=== PATIENT | male | born 1935 | race Caucasian/White ===

== ENCOUNTER → 2017-06-10 | Outpatient (CLI) | payer OTHER | LOC: CIMAGING 08:03 | PROVIDERS: ATTEND Family Medicine | DX: M54.5 Low back pain (principal); M51.36 Other intervertebral disc degeneration, lumbar region; K59.00 Constipation, unspecified | CPT/HCPCS: 72100-PO ==

== ENCOUNTER 2018-02-01 12:17 | Inpatient (IN) | payer OTHER ==
--- NOTE | 2018-02-01 12:39 | EDPHY ---
H & P Time Seen by Provider: 02/01/18 12:38 HPI/ROS: Chief complaint. Fall, hip pain HPI. Patient is an 82-year-old male trip and fall at home. Injured his left hip. Unable to stand or walk since the injury. Did not strike his head or lose consciousness. No neck pain. He is not on blood thinners. No other injuries. No previous injury to the left hip. Increased pain with range of motion of the left hip. Denies chest pain or shortness of breath. No abdominal pain. ROS 10 systems were reviewed and negative with the exception of the elements mentioned in the history of present illness Past Medical/Surgical History: BPH Social History: , nonsmoker, no alcohol Physical Exam: General Appearance: Alert well-developed male moderate distress vital signs are stable Eyes: Pupils equal and round no pallor or injection. ENT, Mouth: Mucous membranes are moist. No evidence of head trauma Respiratory: There are no retractions, lungs are clear to auscultation. Cardiovascular: Regular rate and rhythm. Gastrointestinal: Abdomen is soft and nontender, no masses, bowel sounds normal. Neurological: Awake and alert, sensory and motor exams grossly normal. Skin: Warm and dry, no rashes. Musculoskeletal: Neck is supple nontender. Extremities pain to palpation left hip. Increased pain with range of motion. Slight shortening of the left leg. Distal motor vascular sensitivity is intact Psychiatric: Patient is oriented X 3, there is no agitation. Constitutional: Initial Vital Signs Temperature (C) 37.3 C 02/01/18 12:20 Heart Rate 86 02/01/18 12:20 Respiratory Rate 18 02/01/18 12:20 Blood Pressure 144/95 H 02/01/18 12:20 O2 Sat (%) 96 02/01/18 12:20 O2 Delivery Mode Room Air Allergies/Adverse Reactions: cephalexin [From Keflex] Allergy (Verified 02/01/18 13:53) Rash Home Medications: Medication Instructions Recorded Tamsulosin HCl [Flomax 0.4 MG (RX)] 0.4 mg PO HS 08/17/12 Medical Decision Making - Diagnostics EKG Interpretation: EKG interpreted by me shows normal sinus rhythm normal interval. Left axis deviation with left anterior fascicular block. Slight ST elevation in lead V2. No arrhythmia. The rate is 78 Imaging Results: Imaging Impressions Hip X-Ray 02/01/18 12:27 Impression: Possible left subcapital nondisplaced hip fracture. Results discussed with Dr. Juan Lopez at 1:24 PM. Chest X-Ray 02/01/18 12:50 Impression: Nothing acute identified, assuming that the left posterior ribs described above are not symptomatic. X-ray left hip shows possible left subcapital nondisplaced hip fracture. One-view chest x-ray interpreted by me is normal Procedures: IV normal saline. Patient declines pain medication ED Course/Re-evaluation: The patient, his , and I discussed imaging studies. We discussed treatment plan including emanation for admission and orthopedic evaluation. She expresses understanding and agreement I consulted and discussed the case with who will see the patient and agrees with treatment plan I consulted and discussed case with Dr. Ellsworth, hospitalist who sees the patient in the emergency department Differential Diagnosis: I considered fracture, dislocation, contusion - Data Points Laboratory Results: Laboratory Results 02/01/18 12:59 02/01/18 12:59 02/01/18 02/01/18 02/01/18 12:59 12:59 12:59 WBC 11.68 10^3/uL H 10^3/uL (3.80-9.50) RBC 5.00 10^6/uL 10^6/uL (4.40-6.38) Hgb 14.1 g/dL g/dL (13.7-17.5) Hct 42.2 % % (40.0-51.0) MCV 84.4 fL fL (81.5-99.8) MCH 28.2 pg pg (27.9-34.1) MCHC 33.4 g/dL g/dL (32.4-36.7) RDW 13.2 % % (11.5-15.2) Plt Count 222 10^3/uL 10^3/uL (150-400) MPV 10.4 fL fL (8.7-11.7) Neut % (Auto) 88.5 % H % (39.3-74.2) Lymph % (Auto) 6.7 % L % (15.0-45.0) Traill % (Auto) 4.2 % L % (4.5-13.0) Eos % (Auto) 0.1 % L % (0.6-7.6) Baso % (Auto) 0.1 % L % (0.3-1.7) Nucleat RBC Rel Count 0.0 % % (0.0-0.2) Absolute Neuts (auto) 10.34 10^3/uL H 10^3/uL (1.70-6.50) Absolute Lymphs (auto) 0.78 10^3/uL L 10^3/uL (1.00-3.00) Absolute Monos (auto) 0.49 10^3/uL 10^3/uL (0.30-0.80) Absolute Eos (auto) 0.01 10^3/uL L 10^3/uL (0.03-0.40) Absolute Basos (auto) 0.01 10^3/uL L 10^3/uL (0.02-0.10) Absolute Nucleated RBC 0.00 10^3/uL 10^3/uL (0-0.01) Immature Gran % 0.4 % % (0.0-1.1) Immature Gran # 0.05 10^3/uL 10^3/uL (0.00-0.10) PT 15.3 SEC H SEC (12.0-15.0) INR 1.19 H (0.83-1.16) APTT 30.7 SEC SEC (23.0-38.0) Sodium 141 mEq/L mEq/L (135-145) Potassium 4.5 mEq/L mEq/L (3.3-5.0) Chloride 107 mEq/L mEq/L (97-110) Carbon Dioxide 25 mEq/l mEq/l (22-31) Anion Gap 9 mEq/L mEq/L (6-14) BUN 24 mg/dL H mg/dL (7-23) Creatinine 1.0 mg/dL mg/dL (0.7-1.3) Estimated GFR > 60 Glucose 105 mg/dL H mg/dL (70-100) Calcium 9.0 mg/dL mg/dL (8.5-10.4) Medications Given: Discontinued Medications Sodium Chloride (Ns) 1,000 mls @ 0 mls/hr IV EDNOW ONE; Wide Open PRN Reason: Protocol Stop: 02/01/18 12:50 Last Admin: 02/01/18 13:04 Dose: 1,000 mls Departure - Departure Disposition: [facility] Clinical Impression: Closed left hip fracture Qualifiers: Encounter type: initial encounter Qualified Code(s): S72.002A - Fracture of unspecified part of neck of left femur, initial encounter for closed fracture Condition: Fair
[2018-02-01] MEDS ORDERED: NS 1,000 ML IV ONE (12:49)
[2018-02-01 13:10] LABS: PLATELET COUNT 222 10^3/uL (150-400)
[2018-02-01 13:18] LABS: INR 1.19 (0.83-1.16); PROTIME(PATIENT) 15.3 SEC (12.0-15.0)
[2018-02-01] MEDS ORDERED: NS 1,000 ML IV SCH (14:45)
[2018-02-01] MEDS ORDERED: ONDANSETRON DISINTEGRATING 4 MG TAB PO PRN (14:45)
[2018-02-01] MEDS ORDERED: HYDROmorphONE/DILAUDID 1 MG/ML INJ IVP PRN (14:45)
[2018-02-01] MEDS ORDERED: ONDANSETRON 4 MG/2 ML VIAL IVP PRN ×2 (14:45→21:02)
--- NOTE | 2018-02-01 15:17 | CPEKG ---
Test Reason : OPEN Blood Pressure : / mmHG Vent. Rate : 078 BPM Atrial Rate : 078 BPM P-R Int : 152 ms QRS Dur : 105 ms QT Int : 377 ms P-R-T Axes : 064 -51 040 degrees QTc Int : 430 ms Sinus rhythm Left anterior fascicular block Consider right ventricular hypertrophy Borderline ST elevation, anterior leads Confirmed by Juan Lopez ([id number]) on 02/01/2018 3:16:51 PM Referred By: Confirmed By:Juan Lopez
--- NOTE | 2018-02-01 15:36 | GHP ---
DATE OF ADMISSION: 02/01/2018 CHIEF COMPLAINT: Left hip pain. HISTORY OF PRESENT ILLNESS: The patient is a Norwegian-speaking 82-year-old man with a benign past [facility] history who comes in with a mechanical fall sustaining a hip fracture. The history is gleaned f rom his who is an RN as the patient speaks no Nepali. Apparently today in the kitchen, he fell . His said that he just tripped over his own feet and landed on his left hip. There is no loss of consciousness. He did not complain of any chest pain, palpitations, or lightheadedness at the [facility]. After he fell, he was unable to get up. She wanted to call 911; however, the patient refused. Eventually, she had her neighbors come over and help lift him and get him to the couch. He took a co uple of Tylenol; however, he was still not able to ambulate. Eventually, he had to go to the [facility]. He was unable to get up and the brought him a bottle to urinate in and finally convinced him to call 911 and go to the hospital. He is a healthy 82-year-old man. He has a history significant for BPH and is followed by Dr. Garcia. He has GE reflux disease that has been intermittent otherwise, and some low back pain with radiculop athy that limits his ambulation. He denies any fevers, chills, recent illnesses. No chest pain, pal pitations, shortness of breath. He does get occasional left-sided chest pain. This is not related t o exertion and has not changed in several years. No lower extremity edema. No other associated symp toms. No abdominal complaints, urinary complaints, including those consistent with BPH. No changes in bowel movements. REVIEW OF SYSTEMS: A 10-point review of systems was done and is negative, except as stated in HPI. PAST MEDICAL HISTORY: BPH, GE reflux disease, back pain with radiculopathy. SURGICAL HISTORY: Appendectomy, tonsillectomy. FAMILY HISTORY: Parents are . Father with diabetes. SOCIAL HISTORY: He is currently . He and his have been over 50 years. They are originally from [place] and moved [place] the [place] years ago. 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 He does not smoke. He does not drink. His is a nurse at [employer]. They do have a son who is in [place] and 2 granddaughters. He is ambulatory. He still drives. He walks and can g o up 3 flights of stairs in their home without any chest pain or shortness of breath. MEDICATIONS: Flomax. ALLERGIES: Keflex causes a rash. PHYSICAL EXAMINATION: VITAL SIGNS: He is afebrile. Heart rate 85, blood pressure 142/96, respirati ons 16. He is 95% on room air. GENERAL: He is a very pleasant 82-year-old. He is alert. HEENT: Pupils are equal. Extraocular movements intact. Mucous membranes moist. Speech is fluent. NECK: Supple. No bruits. HEART: Regular without murmur. LUNGS: Clear bilaterally without wheeze, rhonc hi, or rales. ABDOMEN: Soft. No masses. Nondistended. MUSCULOSKELETAL: Pain in his left hip. N EUROLOGIC: He moves all 4 extremities. Speech is fluent. He is alert. PSYCHIATRIC: He is appropr iate. LABORATORY/IMAGING: CBC shows a white count 11.7, H and H and platelet count are normal. Electrolyt es are normal with a slightly elevated BUN of 24. Coags are unremarkable. Chest x-ray personally reviewed and interpreted, shows nothing acute. Old healed rib fractures from a previous fall per the 's report. Electrocardiogram personally reviewed and interpreted, shows sinus rhythm, left anterior fascicular b lock with some borderline ST elevation, but not consistent with ischemia. ASSESSMENT/PLAN: 1. 82-year-old presents with a mechanical fall and a left hip fracture. His EKG is sinus rhythm wit h some borderline ST elevation anteriorly; however, this is most likely J-point elevation, rather dann n any ischemia. He has history consistent with a man who is in relatively good shape for his age and is able to walk up 3 flights of stairs without any symptoms. At this time, I think benefits of surg carlos alberto outweigh any risks and would proceed without any further evaluation at this time. We will contin ue to monitor him throughout his hospitalization. 2. BPH. Currently on Flomax and will resume that when he is able to take p.o. medications. He will likely need a Harris checo and postoperatively briefly and will need to monitor his urine output. 3. Gastroesophageal reflux disease. Treat symptomatically only. He is per 's report not curren tly taking anything for this. Has been on Protonix in the past. 4. History of low back pain, which is chronic. He typically takes Tylenol for this. 5. Deep venous thrombosis prophylaxis. Will place sequential compression devices and deep venous th rombosis prophylaxis per surgery postop. Dr. Angel has been consulted to see the patient. Patient will need to be admitted and will need greate r than 2 midnight stay for treatment of his hip fracture. /[id number]/MODL
[2018-02-01] MEDS ORDERED: LR 1,000 ML IV ONE (18:02)
--- NOTE | 2018-02-01 18:57 | PDHPUP ---
History & Physical Update H&P update statement: This history and physical update is based on an assessment of the patient which was completed after admission or registration (within 24 hours), but prior to the surgery/procedure. H&P update: H&P reviewed & patient examined, no change in patient's condition since H&P completed
[2018-02-01] MEDS ORDERED: BUPIVACAINE 0.5% 30 ML SDV ONE (19:24)
[2018-02-01] MEDS ORDERED: PROPOFOL/EMULSION 500 MG/50 ML BOTTLE IV ONE (19:29)
[2018-02-01] MEDS ORDERED: BUPIVACAINE/EPI 0.5% 30 ML SDV ONE ×2 (19:29→20:25)
[2018-02-01] MEDS ORDERED: fentaNYL 100 MCG/2 ML INJ ONE (19:30)
--- NOTE | 2018-02-01 19:36 | PDANEPAE ---
ANE History of Present Illness left hip fracture ANE Past Medical History - Cardiovascular History Hx Hypertension: No Hx Arrhythmias: No Hx Chest Pain: No Hx Coronary Artery / Peripheral Vascular Disease: No Hx CHF / Valvular Disease: No Hx Palpitations: No - Pulmonary History Hx COPD: No Hx Asthma/Reactive Airway Disease: No Hx Recent Upper Respiratory Infection: No Hx Oxygen in Use at Home: No Hx Sleep Apnea: No Sleep Apnea Screening Result - Last Documented: Negative - Endocrine History Hx Diabetes: No Hypothyroid: No Hyperthyroid: No Obesity: no - Renal History Hx Renal Disorders: No Renal History Comment: +BPH - Liver History Hx Hepatic Disorders: No ANE Review of Systems Review of systems is: negative Review of Systems: - Exercise capacity Exercise capacity: >=4 METS ANE Patient History - Allergies Allergies/Adverse Reactions: cephalexin [From Keflex] Allergy (Verified 02/01/18 13:53) Rash - Home Medications Home medications: home medication list seen and reviewed Home Medications: Tamsulosin HCl [Flomax 0.4 MG (RX)] 0.4 mg PO HS 08/17/12 [Last Taken 01/31/18] - NPO status NPO Status: no food or drink >8 hours NPO Since - Liquids (Date): 02/01/18 NPO Since - Liquids (Time): 11:00 NPO Since - Solids (Date): 02/01/18 NPO Since - Solids (Time): 08:00 - Anes Hx Anes Hx: no prior problems - Smoking Hx Smoking Status: Never smoked ANE Labs/Vital Signs - Labs Result Diagrams: 02/01/18 12:59 02/01/18 12:59 - Vital Signs Blood Pressure: 147/92 Heart Rate: 85 Respiratory Rate: 16 O2 Sat (%): 94 Height: 167.64 cm Weight: 72.575 kg ANE Physical Exam - Airway Neck exam: FROM Mallampati Score: Class 2 Mouth exam: poor dentition - Pulmonary Pulmonary: no respiratory distress - Cardiovascular Cardiovascular: regular rate and rhythym - ASA Status ASA Status: II, E ANE Anesthesia Plan Anesthesia Plan: spinal
[2018-02-01] MEDS ORDERED: PHENYLEPHRINE HCL 100 MCG/ML SYR ONE ×2 (19:38)
[2018-02-01] MEDS ORDERED: ceFAZolin 1 GM VIAL ONE (20:01)
[2018-02-01] MEDS ORDERED: CEFAZOLIN 1 GM/DEXTROSE/50 ML BAG IV ONE (20:11)
[2018-02-01] MEDS ORDERED: ePHEDrine SULFATE 25 MG/5 ML SYR ONE (20:48)
[2018-02-01] MEDS ORDERED: PHENYLEPHRINE HCL 100 MCG/ML SYR IVP PRN (21:02)
[2018-02-01] MEDS ORDERED: DEXAMETHASONE 4 MG/ML VIAL IVP PRN (21:02)
[2018-02-01] MEDS ORDERED: NALOXONE HCL 0.4 MG/ML INJ IVP PRN (21:02)
[2018-02-01] MEDS ORDERED: LR 500 ML IV PRN (21:02)
[2018-02-01] MEDS ORDERED: HYDROmorphONE/DILAUDID 2 MG/ML INJ IVP PRN (21:02)
[2018-02-01] MEDS ORDERED: fentaNYL 100 MCG/2 ML INJ IVP PRN (21:02)
[2018-02-01] MEDS ORDERED: LABETALOL HCL 20 MG/4 ML INJ IVP PRN (21:02)
[2018-02-01] MEDS ORDERED: ACETAMINOPHEN 500 MG TAB PO PRN (21:02)
[2018-02-01] MEDS ORDERED: oxyCODONE IR 5 MG TAB PO PRN (21:02)
[2018-02-01] MEDS ORDERED: KETOROLAC 15 MG/1 ML SDV IVP ONE (21:20)
--- NOTE | 2018-02-01 21:26 | POSTANESTH ---
Post Anesthetic Evaluation Cardiovascular Status: Normal, Stable Respiratory Status: Normal, Stable Level of Consciousness/Mental Status: Can Participate in Eval Pain Control: Adequate, Prn Tx Ordered Nausea/Vomiting Control: Adequate, Prn Tx Ordered Complications Possibly Related to Anesthesia: None Noted
[2018-02-01] MEDS: TAMSULOSIN HCL 0.4 MG CAP PO SCH (22:59)
[2018-02-02] MEDS: ceFAZolin 2 GM/DEXTROSE 100 ML IV SCH ×2 (04:25→13:43)
[2018-02-02] MEDS: ACETAMINOPHEN 325 MG TAB PO PRN (04:25)
[2018-02-02 05:44] LABS: PLATELET COUNT 168 10^3/uL (150-400)
--- NOTE | 2018-02-02 06:10 | GOP ---
DATE OF OPERATION: 02/01/2018 SURGEON: Vicente Angel MD CSR RETAIL: Gaurav Palmer, PULVI MIXER OPERATOR, RN OCCUPATIONAL was the 1st assist for this case. His presence was medicall y necessary for the safe and successful completion of this case. ANESTHESIA: Spinal and MAC PREOPERATIVE DIAGNOSIS: Displaced and impacted left femoral neck fracture. POSTOPERATIVE DIAGNOSIS: Displaced and impacted left femoral neck fracture. PROCEDURE PERFORMED: Left hip closed reduction, percutaneous pinning. FINDINGS: ESTIMATED BLOOD LOSS: 10 cc. INDICATIONS: The patient is an 82-year-old male who had a fall onto his left hip at home, sustaining a Garden I/II femoral neck fracture. Closed reduction and percutaneous pinning are indicated for th is fracture pattern. I had a discussion with him and his about options for this injury. 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 I believe that CRPP is indicated for this fractu re pattern; however, I did caution them that avascular necrosis or loss of reduction are real risks f or the elderly with femoral neck fractures. I did discuss with them that a hip arthroplasty is anoth er option. However, after our discussion, the patient and his both wish to proceed with the CRP P. DESCRIPTION OF PROCEDURE: The patient was seen in the preoperative holding area. He was given the o pportunity to ask all questions. All his questions were answered. Consent was signed. Surgical sit e was marked. He was then transferred to the operative suite. In the operative suite, a spinal was performed by the anesthesia team. Time-out was called including surgical and anesthesia teams confir behzad surgical site and procedure to be performed. 2 g of Ancef was given prior to the incision. He was very carefully placed into the fracture table. Sedation was given. The well leg was placed in t he well leg candelaria and great care was taken to ensure that it was well padded. He was placed with a perineal post with great care to ensure that his arm was well padded. The left lower extremity was p laced in a well-padded leg candelaria. I first examined the fracture under fluoroscopy in 2 views; with the posterior displacement, I flexed the hip and I used some anterior redirected force. This reduced some of the posterior roll off well. At this point, we then prepped and draped in the usual sterile fashion. I used a guidewire to johnna my general structures on the skin. Then, I made a stab incisio n, placed the 1st guidewire into the appropriate position. This is the most inferior wire. I then p laced 2 other wires under fluoroscopic guidance. Of note, before passing the wires into the head, I also used some posterior directed pressure over the top of the thigh to again reduce some of the hip in the lateral view. I then passed the guidewires, measured for the guidewires. I placed the screw into the standard fashion. These were short thread screws. They had a nice bite in this patient. T hese were all placed short of the cortex. At this point, the final x-rays were taken. I was happy w ith the final reduction. I irrigated copiously with sterile saline. The wound was closed in layers. Sterile dressing was applied. The patient tolerated the procedure well. He was then transferred f rom the fracture table to the [facility] and was then taken to the PACU in stable condition. OPERATIVE IMPLANTS: A Synthes 7.3 mm cannulated screw system. POSTOPERATIVE CONDITION: Stable. POSTOPERATIVE PLAN: The patient will be admitted back to the medicine service. He will be admitted for IV pain control, physical therapy. When he is medically stable and cleared physical therapy, he can be discharged, likely to a rehab facility. /[id number]/MODL
--- NOTE | 2018-02-02 07:51 | GCON ---
This is a consultation for Dr. Lopez. REASON FOR CONSULTATION: Left hip pain. HISTORY OF PRESENT ILLNESS: The patient is an 82-year-old male who fell at home. He fell onto his l eft hip, unable to bear weight with pain in the hip after the fall. Denies any prior hip pain. He, prior to this injury, was a normal community ambulator. He was able to ambulate up and down 3 floors of his own house and was otherwise healthy. He was seen by me in the preop area accompanied by his . 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 He is Fijian-speaking only. REVIEW OF SYSTEMS: 10-point review of systems was negative, except as noted above. PAST MEDICAL HISTORY: Benign prostatic hypertrophy. SOCIAL HISTORY: He is . Nonsmoker. No alcohol. PHYSICAL EXAM: GENERAL: He is alert, oriented, in no apparent distress. EXTREMITIES: Left lower extremity, he has a shortened internally rotated left hip, pain with any log roll. He is neurovascularly intact distally. No wounds. IMAGING: An AP pelvis and lateral of the hip was reviewed. This shows an essentially nondisplaced a nd impacted femoral neck fracture. This is essentially a Garden I or Garden II fracture. Lateral x- ray shows some posterior wall loss, however, it is very difficult to evaluate the lateral hip x-ray. ASSESSMENT AND PLAN: Minimally displaced impacted left femoral neck fracture. I believe that closed reduction percutaneous pinning is indicated for this fracture pattern. However, he does have some s light angulation on the lateral views. I discussed the option of pinning versus a hemiarthroplasty w ith his . I did discuss with him that pinning is the viable option for this fracture pattern, ho wever, there is a chance of avascular necrosis and loss of reduction for a femoral neck fracture in t he elderly. They understand that this would necessitate a secondary surgery which would include a hi p replacement. I discussed the other risks and benefits of surgery. Risks include pain, bleeding, i nfection, damage to surrounding structures, delayed union, nonunion, stiffness, weakness, malrotation , avascular necrosis, need for further surgery. After thorough discussion they wish to proceed with a left hip pinning. Will proceed with the surgery in several hours today to perform this in a timely fashion to optimize his outcomes. /[id number]/MODL
--- NOTE | 2018-02-02 08:51 | PDMN ---
Medical Necessity Medical necessity: Pt meets IP criteria as of 02/01/2018 per MD and EVA PRESTON- ( musculoskeletal disease); est los > 2 mn for ongoing tx and management of L hip fracture s/p mechanical fall; requiring ortho consult with surgical intervention , pain control, and therapies. Comorbid advanced age, BPH, GERD.
--- NOTE | 2018-02-02 09:40 | HOSPPROG ---
Hospitalist Progress Note Assessment/Plan: Mr Aparicio is an 82-year-old presents with a mechanical fall and a left hip fracture. First encounter, chart reviewed. He is mainly Tajik speaking, his translated for him who is fluent in Kinyarwanda and Tajik. *left hip fx -s/p repair -his is a nurse at [facility] [employer] [employer] and has requested no pain medications, they cause confusion -she prefers no scheduled Tylenol to be given but wants it prn *BPH -Flomax -Harris dc today *GERD -PPI *DVT prophylaxis: LMWH *Plan: continue supportive care, recheck labs in a.m., stop fluids, he is eating and drinking well. Subjective: Deonte is smiling, says he has very little pain. Objective: Vital Signs Temp Pulse Resp BP Pulse Ox 37.1 C 73 16 106/69 99 02/02/18 07:57 02/02/18 07:57 02/02/18 07:57 02/02/18 07:57 02/02/18 07:57 Laboratory Results 02/02/18 05:00 02/02/18 05:00 02/01/18 02/02/18 02/03/18 05:59 05:59 05:59 Intake Total 1580 Output Total 1005 Balance 575 PT 15.3 SEC (12.0-15.0) H 02/01/18 12:59 INR 1.19 (0.83-1.16) H 02/01/18 12:59 - Physical Exam Constitutional: no apparent distress, appears nourished Eyes: PERRL Ears, Nose, Mouth, Throat: hearing normal Cardiovascular: regular rate and rhythym, no murmur, rub, or gallop Respiratory: no respiratory distress Skin: warm Neurologic: AAOx3 Psychiatric: interacting appropriately ICD10 Worksheet Patient Problems: Problems Problem Status Onset Closed left hip fracture Acute
[2018-02-02] MEDS: ENOXAPARIN 40 MG/0.4 ML SYR SC SCH (09:55)
--- NOTE | 2018-02-02 14:29 | ASMTCMCOM ---
CM Note CM Note Notes: Pt has hip fx after a fall at home. Pt had surgery with Dr. Angel yesterday. Pt resides with who is a nurse at [facility]. Pt mono-lingual Saudi Arabian speaking. OT rec SNF, PT eval pending. Per pt request referral sent to [facility]. Spoke with [facility] at , they can accept Wednesday. CM to follow. D/c plann of care: [facility] when medically stable. Date Signed: 02/02/2018 02:28 PM Electronically Signed By:MARY Haque
--- NOTE | 2018-02-02 15:59 | SOAPPROG ---
SOAP Progress Note Assessment/Plan: Assessment: Plan: Subjective: Deonte seen this am. was not with him. He has minimal pain. In good spirits Objective: Vital Signs Temp Pulse Resp BP Pulse Ox 37.4 C 83 16 113/74 93 02/02/18 12:00 02/02/18 12:00 02/02/18 12:00 02/02/18 12:00 02/02/18 12:00 Laboratory Results 02/02/18 05:00 02/02/18 05:00 02/01/18 02/02/18 02/03/18 05:59 05:59 05:59 Intake Total 1580 Output Total 1005 Balance 575 PT 15.3 SEC (12.0-15.0) H 02/01/18 12:59 INR 1.19 (0.83-1.16) H 02/01/18 12:59 LLE -dressing c/d/i -NV intact distally ICD10 Worksheet Patient Problems: Problems Problem Status Onset Closed left hip fracture Acute
[2018-02-02] MEDS ORDERED: LACTULOSE 20 GM/30 ML UDCUP PO PRN (16:31)
[2018-02-02] MEDS ORDERED: MAGNESIUM HYDROXIDE 30 ML UDCUP PO PRN (16:31)
[2018-02-02] MEDS ORDERED: BISACODYL 10 MG SUPP PR PRN (16:31)
[2018-02-02] MEDS: TAMSULOSIN HCL 0.4 MG CAP PO SCH (19:48)
[2018-02-02] MEDS: SENNOSIDES/DOCUSATE SODIUM TAB PO SCH (19:48)
[2018-02-03] MEDS: POLYETHYLENE GLYCOL 3350 17 GM PKT PO SCH (09:01)
[2018-02-03] MEDS: SENNOSIDES/DOCUSATE SODIUM TAB PO SCH ×2 (09:01→20:47)
[2018-02-03] MEDS: ENOXAPARIN 40 MG/0.4 ML SYR SC SCH (09:02)
--- NOTE | 2018-02-03 12:08 | HOSPPROG ---
Hospitalist Progress Note Assessment/Plan: Mr Aparicio is an 82-year-old presents with a mechanical fall and a left hip fracture. First encounter, chart reviewed. He is mainly Emirati speaking, his translated for him who is fluent in Indonesian and Emirati. 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 Pain controlled. Feeling well. Objective: Vital Signs Temp Pulse Resp BP Pulse Ox 36.2 C 76 14 129/82 H 95 02/03/18 08:00 02/03/18 08:00 02/03/18 08:00 02/03/18 08:00 02/03/18 08:00 Laboratory Results 02/03/18 05:19 02/02/18 05:00 02/02/18 02/03/18 02/04/18 05:59 05:59 05:59 Intake Total 1580 400 400 Output Total 1005 325 750 Balance 575 75 -350 PT 15.3 SEC (12.0-15.0) H 02/01/18 12:59 INR 1.19 (0.83-1.16) H 02/01/18 12:59 - Physical Exam Constitutional: no apparent distress, appears nourished, not in pain Eyes: PERRL, anicteric sclera, EOMI Ears, Nose, Mouth, Throat: moist mucous membranes, hearing normal, ears appear normal Cardiovascular: No JVD, No tachycardia, No edema Respiratory: no respiratory distress, no rales or rhonchi, reduced air movement Gastrointestinal: normoactive bowel sounds, No tenderness, No ascites Skin: warm, normal color, No mottled Musculoskeletal: pain with ROM, muscular tenderness, abnormal gait, generalized weakness Neurologic: AAOx3 Psychiatric: interacting appropriately, not anxious, not encephalopathic, thought process linear ICD10 Worksheet Patient Problems: Problems Problem Status Onset Closed left hip fracture Acute
[2018-02-03] MEDS: ACETAMINOPHEN 325 MG TAB PO PRN (17:26)
--- NOTE | 2018-02-03 18:49 | SOAPPROG ---
SOAP Progress Note Assessment/Plan: Assessment: POD#2 s/p L hip closed reduction and perc pinning -doing very well today. Pain controlled with only tylenol -has been working with PT. Plan: -agree with d/c to [facility] tmrw -PT/OT -pain ctrl -Lovenox -NWB LLE -appreciate care of hospitalist service 02/03/18 18:46 Subjective: Deonte is doing well this evening. Only having mild pain Objective: Vital Signs Temp Pulse Resp BP Pulse Ox 37.6 C 86 12 118/73 95 02/03/18 16:00 02/03/18 16:00 02/03/18 16:00 02/03/18 16:00 02/03/18 16:00 Laboratory Results 02/03/18 05:19 02/02/18 05:00 02/02/1818 02/04/18 05:59 05:59 05:59 Intake Total 0281 455 5357 Output Total 1005 325 850 Balance 575 75 550 PT 15.3 SEC (12.0-15.0) H 02/01/18 12:59 INR 1.19 (0.83-1.16) H 02/01/18 12:59 LLE -dressing is c/d/i -NV intact distally ICD10 Worksheet Patient Problems: Problems Problem Status Onset Closed left hip fracture Acute
--- NOTE | 2018-02-03 18:53 | PDIAF ---
- Diagnosis Code Status: Full Code - Medication Management Discharge Medications: electronically signed and located in the Home Medication List. - Orders Wound Care Instructions: Dry dressing change as needed with dry gauze and medipore tape Activity/Weight Bearing Restrictions: Non-weight bearing left lower extremity Additional Instructions: Ortho: Rec Lovenox [id number] NWB LLE Dressing change as needed at [facility] with dry gauze and tape F/u with Dr. Angel in 2 wks - Follow Up Care Current Providers and Referrals: Patient,NotPresent [Unknown] - As per Instructions Vicente Angel MD [Medical Doctor] - follow up in 2 weeks
[2018-02-03] MEDS: TAMSULOSIN HCL 0.4 MG CAP PO SCH (20:47)
[2018-02-04 08:22] VITALS: BP 120/76
[2018-02-04] MEDS: ENOXAPARIN 40 MG/0.4 ML SYR SC SCH (09:08)
[2018-02-04] MEDS: SENNOSIDES/DOCUSATE SODIUM TAB PO SCH (09:14)
[2018-02-04] MEDS: POLYETHYLENE GLYCOL 3350 17 GM PKT PO SCH (09:16)
--- NOTE | 2018-02-04 10:59 | PDIAF ---
- Diagnosis Diagnosis: hip fracture Code Status: Full Code - Medication Management Discharge Medications: electronically signed and located in the Home Medication List. - Orders Services needed: Registered Nurse, Physical Therapy, Occupational Therapy Wound Care Instructions: Dry dressing change as needed with dry gauze and medipore tape Activity/Weight Bearing Restrictions: Non-weight bearing left lower extremity Additional Instructions: Ortho: Rec Lovenox x4pxulf NWB LLE Dressing change as needed at [facility] with dry gauze and tape F/u with Dr. Angel in 2 wks - Follow Up Care Current Providers and Referrals: Patient,NotPresent [Unknown] - As per Instructions Vicente Angel MD [Medical Doctor] - follow up in 2 weeks
--- NOTE | 2018-02-04 12:43 | SOAPPROG ---
SOAP Progress Note Assessment/Plan: Assessment: POD#3 s/p L hip closed reduction and perc pinning -doing very well. Plan d/c today Plan: - d/c to [facility] -PT/OT -pain ctrl -Lovenox -NWB LLE -appreciate care of hospitalist service Subjective: Deonte is doing very well. In good spirits. Minimal pain Objective: Vital Signs Temp Pulse Resp BP Pulse Ox 37.4 C 76 16 120/76 92 02/04/18 08:00 02/04/18 08:00 02/04/18 08:00 02/04/18 08:00 02/04/18 08:00 Laboratory Results 02/03/18 05:19 02/02/18 05:00 02/03/18 02/04/18 02/05/18 05:59 05:59 05:59 Intake Total 400 1600 Output Total 325 850 500 Balance 75 750 -500 PT 15.3 SEC (12.0-15.0) H 02/01/18 12:59 INR 1.19 (0.83-1.16) H 02/01/18 12:59 LLE -dressing changed, incision is c/d/i ICD10 Worksheet Patient Problems: Problems Problem Status Onset Closed left hip fracture Acute
--- NOTE | 2018-02-04 15:17 | ASDISCHSUM ---
Discharge Information Plan Status:SNF Medically Cleared to Leave: Discharge Date:02/04/2018 01:07 PM CM D/C Disposition: ADT D/C Disposition:Intermediate Facility Projected Discharge Date:02/02/2018 11:00 AM Transportation at D/C:Wheelchair Van Discharge Delay Reason: Follow-Up Date:02/02/2018 11:00 AM Discharge Slot: Final Diagnosis: Placement Information Referral Type:*Senior Care/SNF Referral ID:[id number] Provider Name:[facility] Address 1:[address] Address 2: City:[place] Selection Factors: State:[place] Patient Contact Information Contact Name:MILLY Relationship: Address:[address] City:[place] Alternate Phone: State/Zip Code:[place] [address] Email: Financial Information Financial Class:Medicare Primary Plan Desc:MEDICARE INPATIENT Primary Plan Number:[id number] Secondary Plan Desc: Secondary Plan Number: Assessment Information LACE LACE Length of stay for Answers: 4-6 days current admission Acuity / Level of Answers: Yes Care: Did the patient have an inpatient admission? # of Emergency department Answers: 1-2 visits in the last 6 months Score: 8 Date Signed: 02/04/2018 03:14 PM Electronically Signed By:MARY Haque [facility] Progress Note CM Note CM Note Notes: Pt has hip fx after a fall at home. Pt had surgery with Dr. Angel yesterday. 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 Pt mono-lingual Turkish speaking. OT rec SNF, PT eval pending. Per pt request referral sent to [facility]. Spoke with [facility] , they can accept Wednesday. CM to follow. D/c plann of care: [facility] when medically stable. Date Signed: 02/02/2018 02:28 PM Electronically Signed By:MARY Haque [facility] CM Progress Note CM Note CM Note Notes: Pt medically stable for d/c to [facility]. Orders sent in [employer]. JONH George called report. Transport scheduled and updated. Ave at was not concerned about RN giving report to pt . Date Signed: 02/04/2018 03:16 PM Electronically Signed By:MARY Haque Intervention Information Intervention Type:*IM-Signed Date of Service:02/04/2018 11:27 AM Patient Type:Inpatient Staff Member:Janna Aragon Hours: Discipline: Severity: Comment:
--- NOTE | 2018-02-04 15:17 | ASMTCMCOM ---
CM Note CM Note Notes: Pt medically stable for d/c to [facility]. Orders sent in [employer]. RN Doris called report. Transport scheduled and updated. Ave at was not concerned about RN giving report to pt . Date Signed: 02/04/2018 03:16 PM Electronically Signed By:MARY Haque
--- NOTE | 2018-02-04 17:39 | GDS ---
DISCHARGE DIAGNOSES: 1. Left hip fracture. 2. History of BPH. 3. History of gastroesophageal reflux disease. CONSULTATIONS: Orthopedics. INTERVENTIONS: Left hip closed reduction, percutaneous pinning. PHYSICAL EXAM: GENERAL: The patient is alert. VITAL SIGNS: Afebrile at 37.4, pulse 76, respiratory rate 16, blood pressure is 120/76, saturating 92% on room air. I have seen and evaluated the patient on the day of discharge. HOSPITAL COURSE: The patient is an 82-year-old male who presented to the emergency room after suffer ing a mechanical fall and developing hip pain. He was evaluated and diagnosed with: Left hip fracture. During this hospitalization, he received surgical intervention from Dr. Angel. He is doing well in the postoperative setting and he will be discharged to [facility] for further rehabi litation and management. He does have a history of BPH as well as GERD. These conditions have been well managed during his hospitalization. DISCHARGE MEDICATIONS: Please refer to EMR form. I have not discontinued the patient's previously p rescribed home medications, to the best of my knowledge. Follow-up will be with Dr. Angel as well as t he patient's primary care physician and [facility]. I have spent greater than 35 minutes in the care, coordination, and management of the patient's dispo sition. /[id number]/MODL
== END 2018-02-04 13:07 | DRG 482 ==
LOC: EDUNIT# → F3N 14:36
PROVIDERS: ADMIT Internal Medicine; ATTEND Internal Medicine
PROC: 0QS635Z Reposition Right Upper Femur with External Fixation Device, Percutaneous Approach (ICD-10-PCS; principal; 2018-02-01 19:00)
DX: S72.002A Fracture of unspecified part of neck of left femur, initial encounter for closed fracture (principal); W19.XXXA Unspecified fall, initial encounter; Y92.010 Kitchen of single-family (private) house as the place of occurrence of the external cause; N40.0 Benign prostatic hyperplasia without lower urinary tract symptoms; K21.9 Gastro-esophageal reflux disease without esophagitis; M54.9 Dorsalgia, unspecified
CPT/HCPCS: 97110-GP; 97116-GP; 97161-GP; 97166-GO; 97535-GO; C1713; C1769; G8978-GP-CK; G8979-GP-CJ; G8987-GO-CK; G8988-GO-CJ; J0690; J1650; J1885; J2370; J2704; J3010

== ENCOUNTER → 2018-02-16 | Outpatient (CLI) | payer OTHER | LOC: BMCIMAGING 08:47 | PROVIDERS: ATTEND Orthopaedic Surgery Hand Surgery | DX: S72.012D Unspecified intracapsular fracture of left femur, subsequent encounter for closed fracture with routine healing (principal) ==

== ENCOUNTER → 2018-03-16 | Outpatient (CLI) | payer OTHER | LOC: BMCIMAGING 08:15 | PROVIDERS: ATTEND Orthopaedic Surgery Hand Surgery | DX: S72.002D Fracture of unspecified part of neck of left femur, subsequent encounter for closed fracture with routine healing (principal) ==

== ENCOUNTER → 2018-04-13 | Outpatient (CLI) | payer OTHER | LOC: BMCIMAGING 08:02 | PROVIDERS: ATTEND Orthopaedic Surgery Hand Surgery | DX: S72.002D Fracture of unspecified part of neck of left femur, subsequent encounter for closed fracture with routine healing (principal) ==